=== PATIENT | male | born 1965 | race American Indian/Alaskan Native ===

== ENCOUNTER 2017-01-17 11:26 | Emergency (ER) | payer OTHER ==
[2017-01-17 11:46] VITALS: BP 148/95
[2017-01-17] MEDS ORDERED: TYLENOL PO ONE (11:47)
[2017-01-17] MEDS ORDERED: TYLENOL ONE (11:52)
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
[2017-01-17] MEDS ORDERED: NORCO 5/325 PO ONE (15:41)
[2017-01-17] MEDS ORDERED: BOOSTRIX IM ONE (15:41)
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
== END 2017-01-17 16:44 | disposition home or self-care (01) ==
LOC: ED 11:26
DX: S93.601A Unspecified sprain of right foot, initial encounter (principal); X58.XXXA Exposure to other specified factors, initial encounter; Y93.9 Activity, unspecified; Y92.9 Unspecified place or not applicable; Y99.9 Unspecified external cause status; E11.9 Type 2 diabetes mellitus without complications
CPT/HCPCS: 90471; 90715